=== PATIENT | male | born 1990 | race Two or more races ===

== ENCOUNTER 2017-11-27 09:07 | Emergency (ER) | payer OTHER ==
[~2017-11-27] VITALS: Ht 177.8 cm; Wt 127.0 kg
[2017-11-27 09:08] VITALS: BP 121/68; PULSE 107; RESP 16; TEMP 98.5; O2SAT 96
--- NOTE | 2017-11-27 09:28 | PD ---
HPI Chief Complaint: Injury Time Seen by Provider: 09:16 Travel History International Travel<30 days: No Contact w/Intl Traveler<30days: No Traveled to known affect area: No History of Present Illness HPI This is a 27-year-old male who presents to the emergency department having been running when he twisted his ankle when his foot fell in a hole area says his ankle went in and his knee went out and he has moderate severity pain in the right ankle, constant, unable to weight-bear, radiating to the knee with no numbness or weakness. He denies any other injuries. The injury happened about half an hour ago. [facility] Social History Alcohol Use: No Tobacco Use: No Substance Use: No Allergies-Medications (Allergen,Severity, Reaction): Coded Allergies: No Known Allergies (Unverified Adverse Reaction, Unknown, 11/27/17) Reported Meds & Prescriptions Reported Meds & Active Scripts Active No Active Prescriptions or Reported Medications Review of Systems General / Constitutional: No: Fever, Chills Respiratory: No: Cough Physical Exam Narrative GENERAL: Well-appearing, no acute distress, nontoxic SKIN: Warm and dry. HEAD: Atraumatic. Normocephalic. ENT: No nasal bleeding or discharge. Moist mucous membranes MUSCULOSKELETAL: Tender to palpation with an effusion over the lateral malleolus on the right Vascular: 2+ right DP pulse with normal capillary refill NEUROLOGICAL: Awake and alert. No obvious cranial nerve deficits. Motor grossly within normal limits. Normal speech. PSYCHIATRIC: Appropriate mood and affect; insight and judgment normal. Data Data Last Documented VS Vital Signs Date Time Temp Pulse Resp B/P (MAP) Pulse Ox O2 Delivery O2 Flow Rate FiO2 11/27/17 09:08 98.5 107 16 121/68 (85) 96 Orders Orders Ankle, Complete ([id number]) (11/27/17 ) Knee, Complete (4vws) (11/27/17 ) Ibuprofen (Motrin) (11/27/17 09:30) MDM Medical Decision Making Medical Screen Exam Complete: Yes Emergency Medical Condition: Yes Differential Diagnosis Ankle sprain, medial malleolus fracture, lateral malleolus fracture Narrative Course This is a 27-year-old male who presents to the emergency department having had a trip and fall this morning. He sprained his ankle and heard a pop. X-rays are reassuring with no evidence of acute fracture. Patient will be discharged with crutches and an Rigo wrap and referred to podiatry for ankle sprain. Diagnosis Primary Impression: Ankle sprain Qualified Codes: S93.401A - Sprain of unspecified ligament of right ankle, initial encounter Referrals: Vera Wilburn DPM Patient Instructions: General Instructions Additional Instructions: If you develop severe pain in the foot or ankle, numbness, weakness, or coolness of your foot return to the emergency department immediately. - Use crutches as needed and rest your ankle until your pain improves. - Apply ice to your ankle for 20 minutes every 3 hours for the first 2 days. - Use an rigo wrap to minimize swelling. - Keep your ankle elevated when you are resting. - Use ibuprofen as needed for pain. - Gradually start exercises with your ankle, moving it upward, downward and in small circles. Perform 20 clockwise and 20 counterclockwise circles twice daily. Med/Other Pt SpecificInfo: Prescription(s) given Scripts Ibuprofen (Ibuprofen) 600 Mg Tab 600 MG PO Q6H Y for Pain/Inflammation, #20 TAB 0 Refills Prov: Michelle Jones MD 11/27/17 Disposition: 01 DISCHARGE HOME Condition: Stable Michelle Jones MD Nov 27, 2017 09:28
[2017-11-27] MEDS ORDERED: IBUPROFEN 600 MG TAB PO ONE (09:30)
--- NOTE | 2017-11-27 10:00 | RADRPT ---
EXAM DATE/TIME: 11/27/2017 09:42 [facility] COMPARISON: No previous studies available for comparison. INDICATIONS : Patient twisted right ankle running. MEDICAL HISTORY : None. SURGICAL HISTORY : None. ENCOUNTER: Initial ACUITY: 1 day PAIN SCORE: 10/10 LOCATION: Right lateral ankle FINDINGS: Three view exam was performed of the right ankle. The bony structures are in normal alignment. No e vidence of fracture, dislocation, or soft tissue swelling. The ankle mortise is intact. No radiopaq ue foreign bodies are seen. Bony mineralization is normal. Calcaneal spurs are noted at the insertio n of the Achilles tendon and small at the plantar aponeurosis. CONCLUSION: No acute bony injury. Calcaneal spurs Dax Kaur MD on November 27, 2017 at 9:56 Board Certified Radiologist. This report was verified electronically.
--- NOTE | 2017-11-27 10:01 | RADRPT ---
EXAM DATE/TIME: 11/27/2017 09:44 [facility] COMPARISON: No previous studies available for comparison. INDICATIONS : Right knee pain from falling and twisting right ankle. MEDICAL HISTORY : None. SURGICAL HISTORY : None. ENCOUNTER: Initial ACUITY: 1 day PAIN SCORE: 6/10 LOCATION: Right posrerior knee FINDINGS: Four view examination of the right knee demonstrates no evidence of fracture or dislocation. Bony mi neralization is normal. The articular surfaces are intact. The suprapatellar soft tissues have a no rmal configuration. CONCLUSION: No acute bony injury Dax Kaur MD on November 27, 2017 at 9:58 Board Certified Radiologist. This report was verified electronically.
[2017-11-27] MEDS ORDERED: IBUP-232 PO (10:08)
[2017-11-27 10:50] VITALS: RESP 20
== END 2017-11-27 10:41 | disposition home or self-care (01) ==
LOC: NEPK 09:07
DX: S93.401A Sprain of unspecified ligament of right ankle, initial encounter (principal); X50.1XXA Overexertion from prolonged static or awkward postures, initial encounter; W17.2XXA Fall into hole, initial encounter; Y93.02 Activity, running
CPT/HCPCS: 73564; 73610; 99284; E0113